=== PATIENT | female | born 1985 | race Caucasian/White ===

== ENCOUNTER 2019-08-31 22:01 | Emergency (ER) | payer MEDICAID ==
[~2019-08-31] VITALS: Ht 167.6 cm; Wt 70.3 kg
[2019-08-31 22:08] VITALS: BP_SYST 118
[2019-08-31] MEDS ORDERED: IBUPROFEN 800 MG TABLET PO ONE (23:00)
[2019-08-31] MEDS ORDERED: NACL 0.9% 1,000 ML IV ONE (23:31)
[2019-08-31] MEDS ORDERED: DIPHENHYDRAMINE INJ 50 MG/ML VIAL IVP ONE (23:45)
[2019-08-31] MEDS ORDERED: MORPHINE 4 MG/ML INJ. SYRINGE IVP ONE (23:45)
[2019-08-31 23:58] LABS: BASOPHILS % (AUTO) 0.1 % (0.0-2.0); EOSINOPHILS # (AUTO) 0.2 K/uL (0.0-0.4); EOSINOPHILS % (AUTO) 1.5 % (0.0-4.0); HEMATOCRIT 36.2 % (36-48); HEMOGLOBIN 12.5 g/dL (12.0-16.0); LYMPHOCYTES % (AUTO) 19.1 % (20.5-51.5); MEAN CORPUSCULAR HEMOGLOBIN 31 pg (27-31); MEAN CORPUSCULAR HGB CONC 35 % (32-36); MEAN CORPUSCULAR VOLUME 88 fL (79.0-98.0); MONOCYTES # (AUTO) 0.7 K/uL (0.0-1.0); NEUTROPHILS # (AUTO) 7.7 K/uL (1.8-7.7); NEUTROPHILS % (AUTO) 72.3 % (40.0-70.0); PLATELET COUNT (AUTO) 250 K/uL (130-430); RED BLOOD CELL COUNT(AUTO) 4.11 MIL/uL (4.2-6.2); WHITE BLOOD COUNT (AUTO) 10.7 K/uL (4.8-10.8)
[2019-09-01] MEDS ORDERED: ONDANSETRON HCL 4 MG/2 ML VIAL ONE (00:02)
[2019-09-01 00:14] LABS: CALCIUM 8.7 mg/dL (8.4-11.0); CREATININE 0.79 mg/dL (0.55-1.30); POTASSIUM 3.6 mmol/L (3.5-5.1)
[2019-09-01 00:19] LABS: ALBUMIN 3.9 g/dL (3.4-4.8); TOTAL BILIRUBIN 0.4 mg/dL (0.0-1.0)
[2019-09-01 01:11] LABS: BILIRUBIN,URINE NEGATIVE (NEGATIVE); BLOOD, URINE 3+ (NEGATIVE); CLARITY/URINE CLEAR (CLEAR); COLOR,URINE YELLOW (YELLOW); GLUCOSE,URINE NEGATIVE (NEGATIVE); KETONES,URINE TRACE (NEGATIVE); LEUKOCYTE ESTERASE ,URINE 1+ (NEGATIVE); NITRITE, URINE NEGATIVE (NEGATIVE); PROTEIN URINE 2+ (NEGATIVE); UROBILINOGEN,URINE 0.2 (0.2-1.0)
[2019-09-01 01:17] LABS: BACTERIA,URINE FEW /HPF (None Seen); RBC,URINE >100 /HPF (0-3)
[2019-09-01] MEDS ORDERED: PHENAZOPYRIDINE HCL 100 MG TABLET PO ONE (02:45)
[2019-09-01] MEDS ORDERED: LEVOFLOXACIN 500 MG TABLET PO ONE (02:45)
[2019-09-01 03:08] VITALS: BP_SYST 122
== END 2019-09-01 03:08 | disposition home or self-care (01) ==
LOC: SED 22:01
DX: N12 Tubulo-interstitial nephritis, not specified as acute or chronic (principal); J45.909 Unspecified asthma, uncomplicated; F17.290 Nicotine dependence, other tobacco product, uncomplicated
CPT/HCPCS: 36415; 74176; 80053; 81000; 81025; 85025; 87086; 96374; 96375; 99284; J1200; J2270; J2405; J7030

== ENCOUNTER 2024-04-30 22:09 | Emergency (ER) | payer MEDICAID ==
[~2024-04-30] VITALS: Ht 167.6 cm; Wt 72.6 kg
[~2024-04-30 22:09] MED LIST: BACL10TA PO; DICL75TA5 PO; DOCU-144 PO; IBUP-1969 PO; NIRM1TAB5 PO; ONDA-8 TL; TRAM50TA PO
[2024-04-30 22:25] VITALS: BP_SYST 122; PULSE 84; RESP 20; TEMP 98; O2SAT 99
[2024-04-30] MEDS: NACL 0.9% 1,000 ML IV ONE (23:20)
[2024-04-30] MEDS: KETOROLAC TROMETHAMINE 30 MG VIAL IVP ONE (23:22)
[2024-04-30] MEDS: ONDANSETRON HCL 4 MG/2 ML VIAL IVP ONE (23:23)
[2024-04-30 23:29] LABS: BILIRUBIN,URINE NEGATIVE (NEGATIVE); COLOR,URINE YELLOW (YELLOW); GLUCOSE,URINE NEGATIVE (NEGATIVE); KETONES,URINE NEGATIVE (NEGATIVE); LEUKOCYTE ESTERASE ,URINE 2+ (NEGATIVE); NITRITE, URINE NEGATIVE (NEGATIVE); PROTEIN URINE NEGATIVE (NEGATIVE); UROBILINOGEN,URINE 0.2 (0.2-1.0)
[2024-04-30 23:30] LABS: BASOPHILS % (AUTO) 0.4 % (0.0-2.0); EOSINOPHILS # (AUTO) 0.2 K/uL (0.0-0.4); EOSINOPHILS % (AUTO) 2.7 % (0.0-4.0); HEMOGLOBIN 12.9 g/dL (12.0-16.0); LYMPHOCYTES # (AUTO) 2.2 K/uL (1.0-5.5); LYMPHOCYTES % (AUTO) 31.5 % (20.5-51.5); MEAN CORPUSCULAR HEMOGLOBIN 30 pg (27-31); MEAN CORPUSCULAR HGB CONC 35 % (32-36); MEAN CORPUSCULAR VOLUME 87 fL (79.0-98.0); MONOCYTES # (AUTO) 0.5 K/uL (0.0-1.0); MONOCYTES % (AUTO) 7.4 % (1.7-9.3); PLATELET COUNT (AUTO) 258 K/uL (130-430); RED BLOOD CELL COUNT(AUTO) 4.28 MIL/uL (4.2-6.2); RED CELL DISTRIBUTION WIDTH 13.2 % (9.0-15.0); WHITE BLOOD COUNT (AUTO) 6.8 K/uL (4.8-10.8)
[2024-04-30 23:38] LABS: BLOOD, URINE TRACE (NEGATIVE); CLARITY/URINE SLIGHTLY CLOUDY (CLEAR)
[2024-04-30 23:41] LABS: BACTERIA,URINE MODERATE /HPF (None Seen); WBC,URINE 80-100 /HPF (0-3)
[2024-05-01 00:05] LABS: ALBUMIN 3.6 g/dL (3.4-4.8); BILIRUBIN,DIRECT 0.1 mg/dL (0.0-0.3); CALCIUM 8.4 mg/dL (8.4-11.0); CREATININE 0.94 mg/dL (0.55-1.30); POTASSIUM 3.5 mmol/L (3.5-5.1); TOTAL BILIRUBIN 0.3 mg/dL (0.0-1.0); TOTAL PROTEIN, SERUM 7.4 g/dL (6.4-8.3)
[2024-05-01 01:01] LABS: BARBITURATE, URINE NEGATIVE (NEG <=200); BENZODIAZEPINE, URINE NEGATIVE (NEG <=150); CANNABINOID, URINE NEGATIVE (NEG <=50); COCAINE, URINE NEGATIVE (NEG <=150); METHAMPHETAMINES SCREEN,URINE NEGATIVE (NEG <=500); OPIATE, URINE NEGATIVE (NEG <=100); PHENCYCLIDINE SCREEN,URINE NEGATIVE (NEG <=25); UR TRICYCLIC ANTIDEPRESSANTS NEGATIVE (NEG <=300); URINE AMPHETAMINE NEGATIVE (NEG <=500); URINE METHADONE NEGATIVE (NEG <=200); URINE OXYCODONE SCREEN NEGATIVE (NEG <=100)
[2024-05-01] MEDS: MORPHINE 4 MG INJ. 4 MG/ML VIAL IVP ONE (01:29)
[2024-05-01] MEDS: NACL 0.9% 1,000 ML IV ONE (01:30)
[2024-05-01] MEDS: CIPROFLOXACIN LACT 400 MG/D5W 200 ML IV ONE (01:30)
[2024-05-01] MEDS ORDERED: HYDR-3917 PO (02:50)
[2024-05-01] MEDS ORDERED: ONDA-8 TL (02:50)
[2024-05-01] MEDS ORDERED: CIPR500T5 PO (02:50)
[2024-05-01] MEDS ORDERED: IBUP-1969 PO (02:50)
[2024-05-01 03:07] VITALS: BP_SYST 110; PULSE 68; RESP 20; TEMP 98; O2SAT 98
[2024-05-01] MEDS ORDERED: HYDR-3927 PO (03:43)
== END 2024-05-01 03:00 | disposition home or self-care (01) ==
LOC: SED 22:09
DX: N12 Tubulo-interstitial nephritis, not specified as acute or chronic (principal); N39.0 Urinary tract infection, site not specified; R10.9 Unspecified abdominal pain; G43.909 Migraine, unspecified, not intractable, without status migrainosus; Z90.710 Acquired absence of both cervix and uterus; Z88.0 Allergy status to penicillin; Z79.899 Other long term (current) drug therapy; Z79.2 Long term (current) use of antibiotics
CPT/HCPCS: 99285; 74176; 96375 ×2; 80307; 80076; 80048; 81001; 83690; 85025; 87040; 87086; 36415; 81025; 83605; 96365; J1885; J2405; J0744; J2270; 81000; 81015